=== PATIENT | female | born 1990 | race Caucasian/White ===

== ENCOUNTER 2017-03-30 17:17 | Emergency (ER) | payer SELFPAY ==
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
[2017-03-30 18:22] LABS: APPEARANCE,URINE CLEAR (CLEAR); COLOR,URINE YELLOW (YELLOW)
[2017-03-30 18:23] LABS: OCCULT BLOOD,URINE NEGATIVE (NEGATIVE)
[2017-03-30] MEDS ORDERED: 0.9 % SODIUM CHLORIDE 1,000 ML IV ONE (18:23)
[2017-03-30 18:24] LABS: UROBILINOGEN URINE 0.2 Eu (0.2-1.0)
[2017-03-30 18:31] LABS: AMPHETAMINE NEGATIVE ng/mL (<1000); BARBITURATES NEGATIVE ng/mL (<300); BASOPHILS % 0.3 (0.0-1.5); CANNABINOIDS NEGATIVE ng/mL (< 50); COCAINE NEGATIVE ng/mL (<150); EOSINOPHILS % 0.7 % (0.0-6.8); MEAN CORPUSCULAR HEMOGLOBIN 30.4 pg (28.0-34.0); METHAMPHETAMINE NEGATIVE ng/mL (<1000); METHYLENEDIOXYMETHAMPHETAMINE NEGATIVE ng/mL (<500); MONOCYTES % 6.5 % (0.0-11.0); NEUTROPHILS # 4.6 # k/uL (1.4-7.7); OPIATES NEGATIVE ng/mL (<300)
[2017-03-30 18:35] LABS: eGFR (African) > 60; eGFR (Non-African) > 60
[2017-03-30] MEDS: 0.9 % SODIUM CHLORIDE 1,000 ML IV SCH (18:40)
--- NOTE | 2017-03-30 18:55 | Diagnostic Imaging Report ---
CARLOS SHANNON [facility] [place] [facility] [address] [facility].[address] [address] Report Submission Date: Mar 30, 2017 6:45:30 PM CDT Patient Study Name: RICARDA EVANS Date: Mar 30, 2017 6:23:19 PM CDT Modality Type: CR Gender: F Description: CHEST : 86 Institution: [facility] [place] [facility] Physician: CARLOS SHANNON Chest 1 view Date of Exam: March 30, 2017. History: PA CHEST, DIFFICULTY CONCENTRATING/ FEELING DISORIENTED TODAY (Hx) Findings: No comparison studies are provided. The cardiac and mediastinal silhouettes are normal. The lungs are clear. There is no evidence of pulmonary infiltrate or pleural effusion. The trachea is midline and aortic arch contour is normal. The pulmonary vascularity is within normal limits. Impression: No acute cardiopulmonary abnormality. Electronically signed on Mar 30, 2017 6:45:30 PM CDT by: Amari MACKENZIE
--- NOTE | 2017-03-30 19:02 | Diagnostic Imaging Report ---
CARLOS SHANNON [facility] [address] [facility] [address] [place], [place]. [address] Report Submission Date: Mar 30, 2017 6:59:53 PM CDT Patient Study Name: RICARDA EVANS Date: Mar 30, 2017 6:30:10 PM CDT Modality Type: CT\SR Gender: F Description: CT BRAIN W/O CONTRAST : 86 Institution: [facility] Physician: CARLOS SHANNON CT brain noncontrast Date of study: March 30, 2017. CLINICAL HISTORY: CT HEAD W/O, DIFFICULTY CONCENTRATING/ FEELING DISORIENTED TODAY (Hx) / DIFFICULTY CONCENTRATING (DICOM Hx) TECHNIQUE: 5 mm contiguous axial images of the brain, noncontrast. FINDINGS: There is no evidence of intracranial mass effect, hemorrhage, or acute hydrocephalus. The lateral ventricles are symmetrical and the 4th ventricle is midline without shift. The temporal horn of the right lateral ventricle is somewhat prominent, however, no focal brain parenchymal abnormality is identified. No acute brain parenchymal changes or extra-axial fluid collections are identified. The posterior fossa contents are within normal limits. The calvarium is intact. The visualized sinuses and mastoid air cells are clear. IMPRESSION: No acute intracranial process. Prominent temporal horn of the right lateral ventricle without focal brain parenchymal abnormality. Consider followup MRI of the brain if clinically indicated. Electronically signed on Mar 30, 2017 6:59:53 PM CDT by: Amari MACKENZIE
[2017-03-30] MEDS: SULFAMETHOXAZOLE/TRIMETHOPRIM 1 EACH TABLET PO ONE (19:14)
[2017-03-30 19:28] VITALS: BP 114/54
== END 2017-03-30 19:25 ==
LOC: ED 17:17
DX: F41.9 Anxiety disorder, unspecified (principal); N30.00 Acute cystitis without hematuria
CPT/HCPCS: 70450; 71010; 80053; 80320; 80377; 81002; 81025; 85025; 85379; 87086; A9270; J7030; 96360; 99283; G0480; G0481; S1016